=== PATIENT | female | born 1970 | race Hispanic/Latino ===

== ENCOUNTER 2025-01-26 15:58 | Outpatient (RCR) | payer OTHER ==
[~2025-01-26 15:58] MED LIST: ADDERALL 20 MG20 MG PO
== END 2025-01-28 ==
LOC: PT 15:58
PROVIDERS: ATTEND Internal Medicine
DX: M25.551 Pain in right hip (principal); M25.562 Pain in left knee

== ENCOUNTER 2025-01-31 15:04 | Outpatient (RCR) | payer OTHER | END 2025-02-28 | LOC: PT 15:04 | PROVIDERS: ATTEND Internal Medicine | DX: M25.552 Pain in left hip (principal); M25.562 Pain in left knee ==